=== PATIENT | male | born 1955 | race Caucasian/White ===

== ENCOUNTER 2023-11-13 08:00 | Outpatient (CLI) | payer MEDICARE ==
--- NOTE | 2023-11-14 08:42 | XRAY Report ---
PROCEDURE: Shoulder 2+V RT INDICATIONS: MUSCLE ATROPHY OF RIGHT SHOULDER TECHNIQUE: 3 views of the shoulder were acquired. COMPARISON: None. FINDINGS: Bones: No acute fractures or dislocations. No suspicious bony lesions. Visualized ribs appear inta ct. Mild to moderate degenerative changes at the acromioclavicular joint. Soft tissues: No suspicious soft tissue calcifications. The visualized lungs are within normal limi ts. IMPRESSION: Mild to moderate acromioclavicular joint osteoarthrosis. Consider MRI for further evaluation of the s oft tissues there is continued clinical concern. Reviewed by: Adrián Gilbert MD on 11/14/2023 8:41 AM PDT Approved by: Adrián Gilbert MD on 11/14/2023 8:41 AM PDT Station ID: [id number]
== END 2023-11-13 23:59 | disposition home or self-care (01) ==
LOC: DI.S 08:00
PROVIDERS: ATTEND Emergency Medicine
DX: M19.011 Primary osteoarthritis, right shoulder (principal)

== ENCOUNTER 2023-11-21 14:51 | Outpatient (CLI) | payer MEDICARE ==
--- NOTE | 2023-11-22 08:49 | MRI Report ---
PROCEDURE: Shoulder RT WO INDICATIONS: MUSCLE ATROPHY TECHNIQUE: Noncontrast oblique coronal T2 fast spin echo with fat saturation, oblique sagittal T1 spin echo and T2 fast spin echo with fat saturation, axial T1 spin echo and T2 fast spin echo with fat saturation a nd 3-D gradient echo through the shoulder. COMPARISON: Right shoulder radiographs 11/13/2023. FINDINGS: Image quality: Excellent. Rotator cuff: There is full-thickness tearing of the supraspinatus tendon and infraspinatus tendon w ith proximal tendon retraction measuring up to 4.9 cm from the distal insertion. There is mild atroph y of the supraspinatus and infraspinatus muscles with grade 2 fatty infiltration of the infraspinatus muscle. The teres minor tendon is intact. There is high-grade partial articular sided tearing of the subscapular is tendinosis of the distal insertion. Focal full-thickness tearing is not excluded. The re is mild atrophy and grade 2 fatty infiltration of the subscapularis muscle superiorly. Bones and bursae: No acute trabecular bone injury or fracture. Humeral head is high riding and abuts the undersurface of the acromion. Partial-thickness cartilage irregularity is seen in the glenohumera l joint. Moderate degenerative changes are seen at the acromioclavicular joint with subchondral edema and cystic changes with marginal osteophyte formation. A small amount of fluid in the subacromial/steel bdeltoid bursa communicates with the glenohumeral joint space. Mild synovial hypertrophy is seen in t he axillary recess. Capsule and soft tissues: There is mild diffuse labral degeneration. Biceps long head tendon is poorl y visualized, but appears to be subluxed medially relative to the bicipital groove with chronic tendi nosis and partial intrasubstance tearing. Glenohumeral ligaments are grossly intact. IMPRESSION: 1.Full-thickness tearing of the supraspinatus and infraspinatus tendons with proximal tendon retracti on measuring up to 4.9 cm from the distal insertions. Mild atrophy and grade 2 fatty infiltration of the supraspinatus and infraspinatus muscles. Humeral head is high riding and abuts the undersurface o f the acromion. Findings suggest chronic tearing. 2.At least high-grade partial articular sided tearing of the subscapularis tendon at the superior ins ertion with a possible full-thickness component. Mild atrophy and grade 2 fatty infiltration of the s ubscapularis muscle. 3.Medial subluxation of the biceps long head tendon with partial intrasubstance tearing superimposed on chronic tendinosis. 4.Mild glenohumeral osteoarthrosis. Diffuse labral degeneration. 5.Moderate acromioclavicular joint osteoarthrosis. 6.Small subacromial/subdeltoid bursal effusion communicates with the glenohumeral joint space. Reviewed by: Adrián Gilbert MD on 11/22/2023 8:47 AM PDT Approved by: Adrián Gilbert MD on 11/22/2023 8:47 AM PDT Station ID: [id number]
== END 2023-11-21 14:52 | disposition home or self-care (01) ==
LOC: DI 14:51
PROVIDERS: ATTEND Emergency Medicine
DX: M62.511 Muscle wasting and atrophy, not elsewhere classified, right shoulder (principal); M75.121 Complete rotator cuff tear or rupture of right shoulder, not specified as traumatic; M67.813 Other specified disorders of tendon, right shoulder; M19.011 Primary osteoarthritis, right shoulder

== ENCOUNTER 2024-01-04 08:00 | Outpatient (CLI) | payer MEDICARE | END 2024-01-04 23:59 | disposition home or self-care (01) | LOC: LAB.S 08:00 | PROVIDERS: ATTEND Physician Assistant Medical | DX: L72.3 Sebaceous cyst (principal) | CPT/HCPCS: 87070; 87077; 87181; 87205 ==

== ENCOUNTER 2024-01-11 08:13 | Outpatient (CLI) | payer MEDICARE ==
[2024-01-11 14:49] LABS: BASOPHILS # (AUTO) 0.1 10^3/uL (0.0-0.1); BASOPHILS % (AUTO) 0.6 %; EOSINOPHILS % (AUTO) 0.5 %; HCT - HEMATOCRIT 55.4 % (42.0-52.0); HGB - HEMOGLOBIN 18.3 g/dL (14.0-18.0); LYMPHOCYTES # (AUTO) 1.4 10^3/uL (1.5-3.5); LYMPHOCYTES % (AUTO) 15.9 %; MEAN CORPUSCULAR HEMOGLOBIN 30.2 pg (27.0-31.0); MEAN CORPUSCULAR VOLUME 91.6 fL (80.0-94.0); MEAN PLATELET VOLUME 10.5 fL (7.4-11.4); MONOCYTES # (AUTO) 0.6 10^3/uL (0.0-1.0); MONOCYTES % (AUTO) 6.8 %; NEUTROPHILS # (AUTO) 6.7 10^3/uL (1.5-6.6); PLT - PLATELET COUNT 250 10^3/uL (130-450); RED BLOOD COUNT 6.05 10^6/uL (4.70-6.10); RED CELL DISTRIBUTION WIDTH 16.4 % (12.0-15.0); WHITE BLOOD COUNT 8.9 x10^3/uL (4.8-10.8)
[2024-01-11 16:48] LABS: ALBUMIN 4.3 g/dL (3.2-5.5); ALBUMIN/GLOBULIN RATIO 1.5 (1.0-2.2); ALKALINE PHOSPHATASE 82 IU/L (42-121); ALT ALANINE AMINOTRANSFERASE 32 IU/L (10-60); AST ASPARTATE AMINOTRANSFERASE 29 IU/L (10-42); BILIRUBIN,TOTAL 0.6 mg/dL (0.2-1.0); BUN - BLOOD UREA NITROGEN 14 mg/dL (6-20); CALCIUM 9.7 mg/dL (8.5-10.3); CARBON DIOXIDE - CO2 30 mmol/L (21-32); CHLORIDE 106 mmol/L (101-111); CHOL/HDL RATIO 4.2 (<5.0); CHOLESTEROL 148 mg/dL; CREATININE 1.1 mg/dL (0.6-1.3); GFR - MDRD 66 (>89); GLUCOSE 95 mg/dL (74-104); HDL CHOLESTEROL 35 mg/dL; LDL CHOLESTEROL,CALCULATED 97 mg/dL; LDL/HDL RATIO 2.8 (<3.6); POTASSIUM 4.3 mmol/L (3.5-4.5); SODIUM 139 mmol/L (135-145); TOTAL PROTEIN 7.1 g/dL (6.4-8.9); TRIGLYCERIDES 81 mg/dL; VLDL CHOLESTEROL 16 mg/dL
[2024-01-11 16:50] LABS: THYROID STIMULATING HORMONE 2.28 uIU/mL (0.34-5.60)
== END 2024-01-11 08:14 | disposition home or self-care (01) ==
LOC: LAB.S 08:13
PROVIDERS: ATTEND Nurse Practitioner Acute Care
DX: E29.1 Testicular hypofunction (principal); Z13.228 Encounter for screening for other metabolic disorders; Z13.220 Encounter for screening for lipoid disorders; Z12.5 Encounter for screening for malignant neoplasm of prostate; Z13.29 Encounter for screening for other suspected endocrine disorder; Z13.0 Encounter for screening for diseases of the blood and blood-forming organs and certain disorders involving the immune mechanism
CPT/HCPCS: 36415; 80053; 80061; 84443; 85025; G0103; 83721; 84153